=== PATIENT | male | born 2000 | race Caucasian/White ===

== ENCOUNTER → 2020-11-09 13:03 | Outpatient (CLI) | payer BC, SELFPAY ==
[2020-11-09 09:48] VITALS: BMI 25.5
--- NOTE | 2020-11-09 13:14 | US_ITS ---
STUDY: SCROTUM ULTRASOUND REASON FOR EXAM: Male, 20 years old. rt testicular -- pain TECHNIQUE: Ultrasound evaluation of the scrotum was performed with color Doppler and static mcclure-scale imaging. COMPARISON: None. FINDINGS: RIGHT TESTICLE INTRATESTICULAR: There is a normal size of the right testicle. The right testicle measures 5.6 x 3.5 x 2.7 cm. There is a homogenous echotexture. There is normal arterial and normal venous vascularity. There is no demonstrated right testicular mass or cyst. EXTRATESTICULAR: The epididymis is normal in size. The epididymis head measures 1.0 x 1.2 x 1.2 cm. There is normal vascularity of the epididymis. There is no demonstrated epididymal cystic structure. There is no demonstrated hydrocele. There is no demonstrated varicocele. There is no demonstrated extratesticular mass or cyst. LEFT TESTICLE INTRATESTICULAR: There is a normal size of the left testicle. The left testicle measures 5.5 x 3.3 x 2.5 cm. There is a homogenous echotexture. There is normal arterial and normal venous vascularity. There is no demonstrated left testicular mass or cyst. EXTRATESTICULAR: The epididymis is normal in size. The epididymis head measures 1.5 x 2.4 x 1.7 cm. There is normal vascularity of the epididymis. There is a 1.9 cm epididymal cyst.. There is no demonstrated hydrocele. There is no demonstrated varicocele. There is no demonstrated extratesticular mass or cyst. US/Testicular with Arterial Flow IMPRESSION: Unremarkable scrotal ultrasound without acute findings. Benign left epididymal cyst. Electronically Signed: Cassandra Dallas, at 15:26 EST Tel , Service support ,
== END ==
PROVIDERS: PCP Pediatrics; Visit Provider Physician Assistant
DX: N50.811 Right testicular pain (principal)
CPT/HCPCS: 76870; 93976

== ENCOUNTER → 2020-11-09 16:32 | Outpatient (CLI) | payer BC, SELFPAY ==
[2020-11-09 09:48] VITALS: BMI 25.5
[2020-11-09 17:32] LABS: Color, Urine Yellow (Yellow); Glucose, Dipstick Normal (Normal); Ketone-Dipstick 5 mg/dl (Negative); Leukocyte Esterase-Dipstick Negative /ul (Negative); Nitrite-Dipstick Negative (Negative); Occult Blood-Urine Negative /ul (Negative); Protein-Dipstick 15 mg/dl (Negative); Urine Bilirubin Dipstick Negative (Negative); Urine Clarity Clear (Clear); Urine Urobilinogen Normal (Normal)
[2020-11-09 18:29] LABS: Chlamydia Trachomatis by PCR Negative (Negative); Neisserai gonorrhoeae by PCR Negative (Negative); Probe Check PASS; Sample Adequacy Control PASS; Specimen Processing Control PASS
== END ==
LOC: BMS.EMR 16:38 → LABSPEC 11-11 11:05
PROVIDERS: PCP Physician Assistant; Visit Provider Physician Assistant
DX: N50.811 Right testicular pain (principal)
CPT/HCPCS: 81002; 87086; 87088; 87491; 87591